=== PATIENT | female | born 2000 | race Caucasian/White ===

== ENCOUNTER 2024-06-09 23:16 | Emergency (ER) | payer SELFPAY ==
[~2024-06-09] VITALS: Ht 149.9 cm; Wt 43.0 kg
[2024-06-09 23:20] VITALS: TEMP 98.2; O2SAT 98
[2024-06-10] MEDS: ONDANSETRON HCL 4MG/2ML INJ IM ONE
[2024-06-10 03:56] VITALS: BP 108/74; PULSE 82; RESP 18; O2SAT 100
== END 2024-06-10 03:56 | disposition home or self-care (01) ==
LOC: ER 23:23
DX: T51.0X1A Toxic effect of ethanol, accidental (unintentional), initial encounter (principal); R11.10 Vomiting, unspecified; X58.XXXA Exposure to other specified factors, initial encounter; Y93.89 Activity, other specified; Y92.89 Other specified places as the place of occurrence of the external cause; Y99.8 Other external cause status; Y90.9 Presence of alcohol in blood, level not specified
CPT/HCPCS: 99283; 96372; J2405